=== PATIENT | female | born 1995 | race Caucasian/White ===

== ENCOUNTER → 2018-08-22 | Emergency (ER) | payer OTHER ==
[~2018-08-22] VITALS: Ht 152.4 cm; Wt 70.3 kg
[~2018-08-22] MED LIST: CEFUROXIME500 MG PO; KETO10TA2 PO
== END | disposition home or self-care (01) ==
LOC: ER 21:34
DX: N94.6 Dysmenorrhea, unspecified (principal); N39.0 Urinary tract infection, site not specified